=== PATIENT | female | born 1965 ===

== ENCOUNTER 2016-09-22 12:03 | Emergency (ER) | payer OTHER ==
[2016-09-22 12:22] VITALS: BP 119/83; PULSE 72; RESP 16; TEMP 98; O2SAT 100
--- NOTE | 2016-09-22 12:33 | ED PDOC ---
HPI: Nose Bleed Time Seen by Provider: 09/22/16 12:23 Chief Complaint (Nursing): ENT Problem History Per: Patient History/Exam Limitations: no limitations Onset/Duration Of Symptoms: Days Current Symptoms Are (Timing): Gone Now Location Of Bleeding: Left Nare Additional Complaint(s): 51-year-old female, presents to the emergency department with complaints of non- traumatic nose bleed from left nostril, yesterday and this morning, that lasted twenty-minutes and resolved on its own. Patient notes associated pain to the area. States she had a similar episode in the past, for which she was seen by an ENT, who told her that she had a benign "cyst" in her left upper nare. Patient denies cough, sore throat, nausea/vomiting, headache, neck pain, fevers , chills, chest pain, or any other associated symptoms. No other complaints at this time. Past Medical History Reviewed: Historical Data, Nursing Documentation, Vital Signs Vital Signs: Last Vital Signs Temp 98.0 F 09/22/16 12:19 Pulse 72 09/22/16 12:19 Resp 16 09/22/16 12:19 BP 119/83 09/22/16 12:19 Pulse Ox 100 09/22/16 12:19 - Medical History PMH: Gastritis, Migraine Denies: Chronic Kidney Disease - Family History Family History: States: Unknown Family Hx - Home Medications Home Medications: Ambulatory Orders Medication Instructions Recorded Omeprazole Magnesium [Prilosec Otc] 20 mg PO DAILY 12/20/15 Amoxicillin/Potassium Clav 1 each PO BID #14 tablet 09/22/16 [Augmentin 500-125 Tablet] - Allergies Allergies/Adverse Reactions: Allergies Allergy/AdvReac Type Severity Reaction Status Date / Time tomato Allergy RASH Verified 09/22/16 12:19 Review of Systems ROS Statement: Except As Marked, All Systems Reviewed And Found Negative Constitutional: Negative for: Fever, Chills ENT: Positive for: Other (nose bleed w/ pain to left nare) Respiratory: Negative for: Cough, Sputum Gastrointestinal: Negative for: Vomiting Musculoskeletal: Negative for: Neck Pain, Back Pain Skin: Negative for: Rash Neurological: Negative for: Headache, Dizziness Physical Exam - Reviewed Nursing Documentation Reviewed: Yes Vital Signs Reviewed: Yes - Physical Exam Appears: Positive for: Non-toxic, No Acute Distress Head Exam: Positive for: ATRAUMATIC, NORMOCEPHALIC Skin: Positive for: Warm, Dry. Negative for: Rash Eye Exam: Positive for: Normal appearance ENT: Positive for: Other (No turbinates. No septal hematoma. (+)tenderness to the left ethmoid sinus. No blood visualized in posterior oropharynx). Negative for: Nasal Congestion Neck: Positive for: Painless ROM Respiratory: Negative for: Accessory Muscle Use, Respiratory Distress Extremity: Positive for: Normal ROM Neurologic/Psych: Positive for: Alert, Oriented - ECG O2 Sat by Pulse Oximetry: 100 Medical Decision Making Medical Decision Making: Impression: 51y/o F comes in w/ epistaxis from left nare Plan: Due to patients history of cyst, and risk for infection, patient will be discharged with Rx for antibiotics, advised to continue using normal saline, and f/u outpatient with ENT. Patient is agreeable with plan to discharge. All questions answered. Scribe Attestation: Documented by Dory Laguerre, acting as a scribe for LASHAE Pérez. Provider Attestation: All medical record entries made by the Scribe were at my direction and personally dictated by me. I have reviewed the chart and agree that the record accurately reflects my personal performance of the history, physical exam, medical decision making, and the department course for this patient. I have also personally directed, reviewed, and agree with the discharge instructions and disposition. Disposition - Clinical Impression Clinical Impression: Epistaxis, recurrent - Disposition Referrals: [facility] [Provider Group] Jerry Dowd MD [Staff Provider] - Disposition Time: 12:41 Condition: STABLE Prescriptions: Amoxicillin/Potassium Clav [Augmentin 500-125 Tablet] 1 each PO BID #14 tablet Instructions: Nosebleed (ED) Forms: [employer] Discharge (Yoruba) Print Language: NAMIBIAN
== END 2016-09-22 13:21 | disposition home or self-care (01) ==
LOC: H.ER 12:03
DX: R04.0 Epistaxis (principal)

== ENCOUNTER 2018-09-02 09:57 | Emergency (ER) | payer SELFPAY ==
[2018-09-02 10:21] VITALS: BP 139/81; PULSE 73; RESP 16; TEMP 97.3; O2SAT 100
[2018-09-02 10:22] VITALS: BMI 25.2
--- NOTE | 2018-09-02 12:51 | ED PDOC ---
HPI: CCC, URI, Sore Throat Time Seen by Provider: 09/02/18 11:08 Chief Complaint (Nursing): ENT Problem Chief Complaint (Provider): cough and sore throat History Per: Patient History/Exam Limitations: no limitations Additional Complaint(s): 53 y/o F with hx of pre-diabetes who presents with cough x 4 days and sore throat x 5 days which has improved somewhat. She has been able to swallow liquids and has been drinking normally. Denies fever, chills, night sweats, ear pain, dizziness, body aches or OROZCO. She has been using Robitussin and Delsym with little improvement. Past Medical History Vital Signs: Last Vital Signs Temp 97.3 F L 09/02/18 10:20 Pulse 73 09/02/18 10:20 Resp 16 09/02/18 10:20 BP 139/81 09/02/18 10:20 Pulse Ox 100 09/02/18 10:20 - Medical History PMH: Gastritis, Migraine Denies: Chronic Kidney Disease - Family History Family History: States: Unknown Family Hx - Home Medications Home Medications: Ambulatory Orders Medication Instructions Recorded Omeprazole Magnesium [Prilosec Otc] 20 mg PO DAILY 12/20/15 Amoxicillin/Potassium Clav 1 each PO BID #14 tablet 09/22/16 [Augmentin 500-125 Tablet] Benzonatate [Tessalon Perles] 100 mg PO BID PRN 7 Days sgl 09/02/18 - Allergies Allergies/Adverse Reactions: Allergies Allergy/AdvReac Type Severity Reaction Status Date / Time tomato Allergy RASH Verified 09/22/16 12:19 Physical Exam - Reviewed Nursing Documentation Reviewed: Yes Vital Signs Reviewed: Yes - Physical Exam Appears: Positive for: Uncomfortable ENT: Positive for: Normal ENT Inspection. Negative for: Tonsillar Exudate Cardiovascular/Chest: Positive for: Regular Rate, Rhythm Respiratory: Positive for: Normal Breath Sounds Neurological/Psych: Positive for: Awake, Alert, Oriented - ECG O2 Sat by Pulse Oximetry: 100 Medical Decision Making Medical Decision Making: Rapid STrep Disposition - Clinical Impression Clinical Impression: URI (upper respiratory infection) - Patient ED Disposition Is Patient to be Admitted: No - Disposition Referrals: [facility] [Outside] Disposition: Routine/Home Disposition Time: 13:59 Condition: STABLE Additional Instructions: Follow up with your primary care doctor if symptoms persist. Take Tessalon Perles for cough. Take Tylenol or Ibuprofen for throat pain. Stay hydrated. Return to ER if your symptoms worsen or you develop a fever. Prescriptions: Benzonatate [Tessalon Perles] 100 mg PO BID PRN 7 Days sgl PRN Reason: Cough Instructions: Viral Upper Respiratory Infection, Adult (DC) Forms: [employer] ([place]) Print Language: OCCITAN
== END 2018-09-02 13:58 | disposition home or self-care (01) ==
LOC: H.ER 09:57
DX: J06.9 Acute upper respiratory infection, unspecified (principal); R73.03 Prediabetes